=== PATIENT | female | born 1945 | race Hispanic/Latino ===

== ENCOUNTER 2017-10-08 10:10 | Outpatient (CLI) | payer MEDICARE, OTHER ==
--- NOTE | 2017-10-08 10:57 | Cat Scan Report ---
CT ABDOMEN AND PELVIS WITHOUT CONTRAST: 10/08/17 10:10:00 CLINICAL:Abdominal pain. No comparison. TECHNIQUE: Volumetric acquisition and 1.25 millimeter scan reconstructions from the lung bases through the pelvis. The study was performed without oral contrast. FINDINGS: Abdomen:A 4.5 mm noncalcified right lower lobe lung nodule with an adjacent poorly marginated 1 cm groundglass opacity are identified on the initial scan through the lung bases. Normal liver, bile ducts and gallbladder. Normal stomach, duodenum and spleen. Fatty infiltration of the pancreas and no signs of acute or chronic pancreatitis. Moderate calcification of the abdominal aorta and branch arteries. Abundant calcifications in the splenic artery. Mild calcification at the origin of the left renal artery. The right adrenal gland is normal. The left adrenal gland is enlarged with no distinct nodule or mass identified. The medial and lateral limbs are connected by soft tissue density measuring 13 Hounsfield units in density. Normal inferior vena cava. The right kidney measures 8.7 cm in length and the left kidney measures 10.5 cm in length. Moderate bilateral renal pelvocaliectasis along with bilateral renal parenchyma thinning. No renal mass or calculus. The ureters are small caliber. The small bowel is normal. The appendix is well imaged and normal. Normal ascending and transverse colon. Mild diverticulosis of the descending colon and moderate diverticulosis of the sigmoid colon. No signs of diverticulitis.No ascites and no pneumoperitoneum. Pelvis: Normal urinary bladder. The uterus is enlarged and measures 8.1 x 5.6 x 7.3 cm. There is suggestion of a posterior subserosal fibroid or mass of the uterine body measuring 5 x 5 x 5 cm. Fluid in the uterine cavity distends the cavity to 1.6 cm in AP thickness. The endometrium is not delineated. Ovaries are small and normal. Moderate sigmoid diverticulosis but no signs of diverticulitis. No pelvic mass, lymphadenopathy or fluid. Bone windows demonstrate no suspicious bone lesion. Degenerative changes in the lumbar spine. IMPRESSION: 1. 4.5 mm noncalcified right lower lobe lung nodule with an adjacent 1 cm groundglass opacity. Recommend CT chest without and with contrast for further evaluation of the lungs. 2. Moderate bilateral renal pelvocaliectasis with no obstructing calculi identified. 3. The small size of the right kidney and bilateral renal parenchymal thinning suggests possible chronic pyelonephritis. However, no renal cortical scars are identified. 4. Diverticulosis but no diverticulitis. 5. Enlarged uterus with a 5 cm posterior mass or fibroid. 6. Abnormal fluid in the uterine cavity. Recommend further evaluation of the uterus with endovaginal ultrasound.
== END 2017-10-08 10:11 | disposition home or self-care (01) ==
LOC: SPVIMAG 10:10
PROVIDERS: ATTEND Family Medicine
DX: K57.30 Diverticulosis of large intestine without perforation or abscess without bleeding (principal); N85.2 Hypertrophy of uterus; K86.89 Other specified diseases of pancreas; I70.0 Atherosclerosis of aorta; I70.1 Atherosclerosis of renal artery; I70.8 Atherosclerosis of other arteries; N28.89 Other specified disorders of kidney and ureter; M47.896 Other spondylosis, lumbar region; R91.1 Solitary pulmonary nodule
CPT/HCPCS: 74176

== ENCOUNTER 2017-10-31 09:35 | Outpatient (CLI) | payer MEDICARE, OTHER ==
--- NOTE | 2017-10-31 11:10 | Cat Scan Report ---
CT scan of chest without IV contrast: History: Solitary nodule left lung. Findings: No endobronchial or mediastinal mass. No mediastinal, hilar or axillary adenopathy. No pleural pericardial effusion. Bilateral apical scarring. There is tiny 2 mm calcified nodule right apex. There is partially calcified/noncalcified 3mm nodule right lung series 3 image 62. Impression: Single calcified nodule right apex. Partially calcified or noncalcified nodule in the right lung series 3 image 62.
--- NOTE | 2017-10-31 11:37 | Ultrasound Report ---
Pelvic and transvaginal sonography: History: Mass of the uterus. Findings: Uterus measures 7.9 x 4.9 x 5.4 cm. Endometrial thickness 16.1 mm. There is cystic areas identified within the endometrium. Largest cystic area measures 0.9 x 0.7 x 0.8 cm. There is a large mass identified in the myometrium of the uterus at the posterior aspect of the body measuring 6.7 x 4.5 x 5.5 cm, probably a fibroid. Right ovary 2.1 x 1.5 x 1.2 cm. No mass. Left ovary 1.7 x 1.1 x 1.2 cm. No mass. No fluid in the cul-de-sac. Impression: Endometrial findings as detailed above. Large mass at the myometrium probably a fibroid.
== END 2017-10-31 09:36 | disposition home or self-care (01) ==
LOC: US 09:35
PROVIDERS: ATTEND Family Medicine
DX: N85.8 Other specified noninflammatory disorders of uterus (principal); R91.1 Solitary pulmonary nodule
CPT/HCPCS: 71250; 76830; 76856

== ENCOUNTER 2018-11-19 10:50 | Outpatient (CLI) | payer MEDICARE, OTHER ==
--- NOTE | 2018-11-19 12:30 | Cat Scan Report ---
PROCEDURE: CT CHEST WO CON TECHNIQUE: CT of the chest performed. No IV contrast administered. Axial images and coronal and sagit carlos reformatted images were obtained. HISTORY: R91.1 PULM NODULE COMPARISON: 10/31/2017 FINDINGS: There is a left lower lobe nodule abutting the major fissure. This measures about 6 mm. It is not fabian nged significantly. 4 mm nodule in right lower lobe image 160 unchanged. There are multiple small areas of nodularity along the major fissure in the right lower lobe. The lar gest nodular area measures 6 mm. These are not changed. 4 mm nodule in left lower lobe image 223 is not as well seen on the previous due to motion artifact b ut is likely not changed. There are no convincing new or enlarging pulmonary nodules. There are coronary artery calcifications. There is no abnormal mediastinal or hilar mass seen. There is no pleural effusion seen. There is no pneumothorax seen. IMPRESSION: There are unchanged small pulmonary nodules, most abutting the major fissures. Largest is about 6 mm. If patient is low risk for malignancy then no additional follow-up needed. If patient is high risk, recommend another follow-up in 12 months. This document is electronically signed by Lynnette Craven MD., November 19 2018 12:28:43 PM ET
== END 2018-11-19 10:51 | disposition home or self-care (01) ==
LOC: CT 10:50
PROVIDERS: ATTEND Specialist
DX: R91.1 Solitary pulmonary nodule (principal)
CPT/HCPCS: 71250

== ENCOUNTER 2020-02-28 10:03 | Outpatient (CLI) | payer MEDICARE, OTHER ==
--- NOTE | 2020-02-28 11:21 | Cat Scan Report ---
CT CHEST WITHOUT CONTRAST INDICATION / CLINICAL INFORMATION: Follow-up of pulmonary nodules. TECHNIQUE: Axial CT images were obtained through the chest without contrast. All CT scans at this location are p erformed using CT dose reduction for ALARA by means of automated exposure control. COMPARISON: CT chest without contrast from 11/19/2018 and 10/31/2017. FINDINGS: HEART: No significant abnormality. VASCULATURE: There is moderate coronary atherosclerosis and mild atherosclerosis throughout the aorta and great vessels. No other significant abnormality. LYMPH NODES: No significant adenopathy. TRACHEA AND BRONCHI:No signficant abnormality. LUNGS: Noncalcified right lower lobe nodules have not significantly changed and measure up to 4.7 mm on image 75 of series 2. A left lower lobe. Fissural nodule on image 59 of series 2 is unchanged and measures 7.1 mm. Additional smaller left lower lobe nodules are unchanged. No new nodule/mass or othe r significant abnormality. PLEURA: No significant pleural effusion. No pneumothorax. UPPER ABDOMEN: No acute abnormality. Incompletely evaluated probable bilateral renal cysts noted. The re is mild generalized atherosclerosis. No other significant abnormality. BONES: No acute abnormality or significant change. ADDITIONAL FINDINGS: None. IMPRESSION: 1. Stable bilateral pulmonary nodules. No further follow-up imaging is indicated at this time. 2. Additional findings as above. Signer Name: Nahum Kong MD Signed: 02/28/2020 11:16 AM Workstation Name: [id number]
== END 2020-02-28 10:04 | disposition home or self-care (01) ==
LOC: CT 10:03
PROVIDERS: ATTEND Specialist
DX: R91.8 Other nonspecific abnormal finding of lung field (principal); I25.10 Atherosclerotic heart disease of native coronary artery without angina pectoris
CPT/HCPCS: 71250